=== PATIENT | female | born 1955 | race Caucasian/White ===

== ENCOUNTER 2021-04-09 09:06 | Outpatient (REF) | payer BC, SELFPAY ==
--- NOTE | ~2021-04-09 | MM_ITS ---
EXAMINATION: MM SCREENING DIGITAL BREAST TOMOSYNTHESIS, BILATERAL CLINICAL INFORMATION: Screening. Asymptomatic. The lifetime risk of breast cancer based on the Tyrer-Cuzick Model is 4%. COMPARISON: Mammography: 08/04/2018, 04/15/2017, 03/06/2016 TECHNIQUE: Digital breast tomosynthesis is performed in both the craniocaudal and mediolateral oblique views along with computer-aided detection (CAD). Synthesized 2D images are generated from the tomosynthesis. Additional right MLO view is provided. FINDINGS: There are scattered areas of fibroglandular density (ACR BI-RADS breast composition Category b). There are no significant masses, abnormal calcifications, or other abnormalities. Parenchymal pattern is similar to prior studies. No developing density. The axilla and skin contours are unremarkable. MM/MM tomosynthesis screening BI IMPRESSION: No mammographic evidence of malignancy. ASSESSMENT: BI-RADS 1: Negative RECOMMENDATION: Routine annual mammography screening. This patient's information was entered into a reminder system with a target due date for their next mammogram.
== END 2021-04-09 09:07 | disposition home or self-care (01) ==
LOC: HO.MAMMO 09:06
PROVIDERS: Visit Provider Nurse Practitioner Family
DX: Z12.31 Encounter for screening mammogram for malignant neoplasm of breast (principal)
CPT/HCPCS: 77063; 77067

== ENCOUNTER 2023-03-18 11:35 | Outpatient (REF) | payer OTHER, SELFPAY ==
--- NOTE | ~2023-03-18 | MM_ITS ---
EXAMINATION: MM SCREENING DIGITAL BREAST TOMOSYNTHESIS, BILATERAL CLINICAL INFORMATION: Screening. Asymptomatic. The lifetime risk of breast cancer based on the Tyrer-Cuzick Model is 3.1%. COMPARISON: Mammography: This study is compared with prior exams dating back to 2017. TECHNIQUE: Digital breast tomosynthesis is performed in both the craniocaudal and mediolateral oblique views along with computer-aided detection (CAD). Synthesized 2D images are generated from the tomosynthesis. FINDINGS: There are scattered areas of fibroglandular density (ACR BI-RADS breast composition Category b). There are no significant masses, abnormal calcifications, or other abnormalities. MM/MM tomosynthesis screening BI IMPRESSION: No mammographic evidence of malignancy. ASSESSMENT: BI-RADS BI-RADS 1 - Negative RECOMMENDATION: Routine annual mammography screening. 1 year F/U This examination should not preclude the clinical evaluation of a suspicious palpable abnormality. This patient's information was entered into a reminder system with a target due date for their next mammogram.
== END 2023-03-18 11:36 | disposition home or self-care (01) ==
LOC: HO.MAMMO 11:35
PROVIDERS: Visit Provider Nurse Practitioner Family
DX: Z12.31 Encounter for screening mammogram for malignant neoplasm of breast (principal)
CPT/HCPCS: 77063; 77067

== ENCOUNTER → 2023-03-18 12:00 | Outpatient (BNV) | payer OTHER, SELFPAY | PROVIDERS: Visit Provider Radiology Diagnostic Radiology | DX: Z12.31 Encounter for screening mammogram for malignant neoplasm of breast (principal) | CPT/HCPCS: 77063; 77067 ==

== ENCOUNTER 2025-03-16 08:24 | Outpatient (REF) | payer MEDICARE, SELFPAY ==
--- OUTSIDE RECORDS SUMMARY | 2024-07-02 09:00 | XMS_ITS | Continuity of Care Document ---
Author Organization [facility] Address [address] [place] [address] Dr [address] [place] [address] Phone Care Team Providers Care Technical Training Specialist Name Role Phone Georges CONRAD, RVT, OMAR, Rafat Unavailable U navailable Allergies, Adverse Reactions, Alerts Substance Reaction Status Criticality No Known Allergies Active No Inform ation Procedures Procedure Date Duplex Scan-extrem Veins; Uni/ CT & [place] O ct Inj Scleros Solut; Mx Veins 1- CT & [place] O ct Ultrason Guidan Needle Bx-rad- CT & [place] O Duplex Scan-extrem Veins; Uni/ CT & [place] O ct Endovenous Laser, 1st Vein- CT & [place] Ultrason Guidan Needle Bx-rad- CT & [place] O Inj Sclerosing Solution; Sngl- CT & [place] O Offic/outpt E&m Estab 5 Min Trial- Telem edicine CT & [place] Office/Oupt E&M New Pt 30 Mins- CT & [place] Surgical Stockings CVR Reveal Thigh High 20-30 Duplex Scan-extrem Veins; Comp- CT & [place] Advance Directives Directive Yes / No Effective Date File Name No Information Encounters Encounter Description Practice Location Reason(s) For Visit Diagnoses Date Provider Providers Copied on Encounter [facility], [address] [place] [address] [address], [place], [place], [id number], [place] tel:[phone] [place] Encounter for follow-up examination after completed treatment for conditions other than malignant neoplasmPain in right leg Jun- 4 Georges CONRAD RVT, OMAR Douglass. [address] [facility], Suite [facility], [place], [place], [id number], [place]. tel:[phone] Referring Provider: Deisy Jordan NP, [address], [place], [address]. tel:[phone] [place] [facility], [address] [place] [address] [address], [id number], [place] tel:[phone] [place] Varicose veins of right lower extremity with other complications Jun- 4 Georges CONRAD RVT, OMAR Douglass. [address] [place] [address], Suite [facility], [place], [place], [id number], [place]. tel:[phone] Referring Provider: Deisy Jordan NP, [address], [place], [address]. tel:[phone] [facility], [address] [place] [address] [address], [id number], [place] tel:[phone] [place] Encounter for follow-up examination after completed treatment for conditions other than malignant nePain in right leg Jun- 4 Georges CONRAD RVT, OMAR Douglass. [address] [place] [address], [address], [place], [place], [id number], [place]. tel:[phone] Referring Provider: Deisy Jordan NP, [address], [place], [address]. tel:[phone] [place] [facility], [address] [place] [address] [address] [place], [id number], [place] tel:[phone] [place] Varicose veins of right lower extremity with other complications Jun- 4 Georges CONRAD RVT, OMAR Douglass. [address] [place] [address], Yudith fin[place], [id number], [place]. tel:[phone] Referring Provider: Deisy Jordan MICROBIAL SPECIALIST, [address] [place] [address], [place], [address]. tel:[phone] [place] [facility], [address] [place] [address] Dr [address] [address], [id number], [place] tel:[phone] CVR - [facility] No Information 4 Georges CONRAD RVT, OMAR Douglass. [address] [place] [address], [facility] [place], [id number], [place]. tel:[phone] Offic/outpt E&m Estab 5 Min Trial- Telemedicine CT & [facility], [address] [place] [address] [facility] [address] [address], [place], [id number], [place] tel:[phone] [facility] Localized edemaCramp and spasmRestless legs syndromeVenou s insufficiency (chronic) (peripheral)E ssential (primary) hypertensionD isorder of pigmentation, unspecified 4 Andres Burleson. [address] [place] [address], [place], [id number], [place]. tel:[phone] Referring Provider: Deisy Jordan NP, [address] [place] [address] [address], [place], [address]. tel:[phone] Office/Oupt E&M New Pt 30 Mins- CT & [place] [facility], [address] [place] [address] [facility] [address], [id number], [place] tel:[phone] [facility] Chronic venous hypertension (idiopathic) without complications of bilateral lower extremityRest less legs syndromeEssen tial (primary) hypertensionV enous insufficiency (chronic) (peripheral)D isorder of pigmentation, unspecified 4 Georges CONRAD RVT, OMAR Douglass. [address] [place] [address], [place]ud[place], [id number], [place]. tel:[phone] Referring Provider: Deisy Jordan MICROBIAL SPECIALIST, [address], [place], [address]. tel:[phone] [facility], [address], [place], [id number], [place] tel:[phone] [facility] - [facility] Chronic venous hypertension (idiopathic) with other complications of bilateral lower extremity 4 Georges CONRAD, RVT, RPVI Rafat. [address] [facility] [address], [place], [place], [id number], [place]. tel:[phone] Referring Provider: Deisy Jordan MICROBIAL SPECIALIST, [address], [place], [address]. tel:[phone] Family History Family Member Type Diagnosis Age At Onset No Information Payers Payer name Insurance type Covered green party ID Authoriza tion(s) [employer] Medicare CI [id number] Social History Type Description Quantity Date Captured Comments Sex Female Smoking Status No Information Chief Complaint And Reason For Visit No Information Reason For Referral Reason For Referral No Information Plan Of Treatment Date Type Action Status Goal Diet education completed Referral Ordered: Weight management: Referral to physician timeframe: 3 Months (related to Body mass index (BMI) 35.0-35.9, adult) ordered History Of Present Illness Encounter Date Complaint History Of Prese nt Illness No Information Functional Status Date Functional Assessmen t No Information Instructions Date Instruction Additional Infor mation Pre and post instruc tions reviewed and provided Related to Localized edema Patient education booklet given Related to Localized edema Patient education booklet given Related to Chronic venous hypertension (idiopathic) without complications of bilateral lower extremity Lifestyle education Related to B yani mass index (BMI) 35.0-35.9, adult Giving Encouragement to exercise Related to Body mass index (BMI) 35.0-35.9, adult Diet education Related to Body mass index (BMI) 35.0-35.9, adult Pre and post instruc tions reviewed and provided Related to Chronic venous hypertension (idiopathic) without complications of bilateral lower extremity Assessments Type Assessment Date No Information Patient Care Teams Name Effective Dates (start - stop) Status Members No Information
--- OUTSIDE RECORDS SUMMARY | 2025-03-15 05:02 | XMS_ITS ---
Author Organization [facility] Address [address] [place] [address] Care Team Providers Care Production Leader Name Role Phone Maliha Dill Primary Care Provider U tc Gastelum Jr, Greg Linda REASON FOR VISIT not feeling well Encounters Encounter Location Date Provider Diagnosis [facility] [address] [place] [address] 03/15/2025 Greg Gastelum Jr Abdominal pain R10.9 Assessments Encounter Date Diagnosis (ICD Code) Assessment Notes Treatment Notes Treatment Clinical Notes Section Notes 03/15/2025 Abdominal pain (ICD-10 - R10.9) Plan Of Treatment Pending Test Test Name Order Date BUN 03/15/2025 CREATININE 03/15/2025 LIVER PROFILE 03/15/2025 LIPASE 03/15/2025 CBC w/o DIFF 03/15/2025 CT ABD & PELVIS WITH CONTRAST 03/15/2025 Next Appt Details Provider Name:Greg foss Jr, 05/16/2025 01:55:00 PM, [address], [address], [place], [address], Progress Notes * JOSE AGUILERADOB: 5 (70 yo F)Acc No.[id number]:03/15/2025 Patient: JOSE COLEY :1955 A ge:70 Y S ex:Female Address:[address] [place] [address], [place] [address] Subjective: * Chief Complaints: * N ot feeling well * Medical History: * Surgical History: * Hospitalization/Major Diagno stic Procedure: * Medications: Objective: * Vitals: * Physical Examination: Assessment: * Assessment: 1. A bdominal pain - R10.9 (Primary) Plan: * Treatment: * Procedure Codes: * true * Date: Generated for Dakota gonzalez/Omi/Yuliana on: 0 03/16/2025 08:35 AM EDT
--- OUTSIDE RECORDS SUMMARY | 2025-03-16 08:36 | XMS_ITS | Data Portability ---
Author Organization [facility], Telehealth Patient Home Address [address] [place] [address] Assessment No assessment recorded. Plan of Treatment Reminders Order Date Submit Date Provider Last Modified By Organization Details Last Modified Time Details Appointments None recorded. Lab CMP, serum or plasma 2018 019 OSMAN Not available 9 08:24:31 CBC 2018 019 dania Not available 9 08:37:56 lipids, total, serum 2018 019 OSMAN Not available 9 08:24:31 hepatitis C Ab, serum 2018 019 tawny Not available 9 10:31:36 CMP, serum or plasma 2017 018 OSMAN Not available 8 08:01:57 CBC 2017 018 OSMAN Not available 8 08:01:57 Referral hand surgeon referral 2018 019 dania Marie MD, [address] [place], [address], 9 08:38:55 orthopedic referral 2018 019 tawny Marie MD, [address] [place], [address], 9 09:53:29 neurologis t referral 2018 019 OSMAN Gallegos MD, [address] [place] [address], [address], 9 05:41:18 Procedures None recorded. Surgeries None recorded. Imaging None recorded. Medication Orders Medrol (Tony) 4 mg tablets in a dose pack 2017 [facility] #[id number], [address] [place], [address], 9 10:00:01 amoxicilli n 500 mg capsule 2017 018 [facility]/Pharmacy #[id number], [address] [place], [address], 8 11:10:16 Cheratussi n AC 10 mg-100 mg/5 mL oral liquid 2017 018 [facility]/Pharmacy #[id number], [address] [place], [address], 8 11:10:23 ProAir HFA 90 mcg/actuat ion aerosol inhaler 2017 018 [facility]/Pharmacy #[id number], [address] [place], [address], 8 14:15:29 meclizine 12.5 mg tablet 2017 018 [facility]/Pharmacy #[id number], [address] [place], [address], 8 11:00:24 cyclobenza katherine 10 mg tablet 2017 018 [facility]/Pharmacy #[id number], [address] [place], [address], 8 14:05:35 naproxen 500 mg tablet 2017 018 sena [facility]/Pharmacy #[id number], [address] [place], [address], 8 11:00:01 Patient TargetsNo targets recorded. Patient Instructions Encounter Date Encounter Id Patient Instructions Last Modified By Organization Details Last Modified Time 08/24/2018 [id number] Call if symptoms persist sena Not available 08/24/2018 12:16:52 03/22/2019 [id number] sleep apnea: car e instructions Not available 03/22/2019 10:21:56 high blood pressure: care instructions Not available 03/22/2019 10:21:56 learning about high blood pressure Not available 03/22/2019 10:21:56 04/13/2019 [id number] sleep apnea: car e instructions Not available 04/13/2019 10:03:10 high blood pressure: care instructions Not available 04/13/2019 10:03:10 learning about high blood pressure Not available 04/13/2019 10:03:10 Reason for Referral Orthopedic Referral for Pare sthesia of hand Referring Physician: Yashira [facility], Encounter Date: 03/22/2019 Neurologist Referral for Par esthesia of hand Referring Physician: Yashira [facility], Encounter Date: 03/22/2019 Hand Surgeon Referral for Bi lateral carpal tunnel syndrome right hand worse than left Referring Physician: Yashira [facility], Encounter Date: 04/13/2019 Results Created Date Observation Date Name Description Value Unit Range Abnormal Flag Note LastModifiedBy Organization Detail LastModifiedTime 08/10/20 18 08/04/2018 MAMMO , scree leonel, bilat eral No observ ation record ed. sena Not Available 2017 14:16:44 04/05/20 19 04/02/2019 nerve condu ction study /EMG (PROC ) No observ ation record ed. Nathaniel Gallegos MD [address] [place] [address], [id number], 04/05/2019 11:11:01 Result Notes None recorded. Problems Name Problem SNOMED Code Status Onset Date Resolution Date Notes Provider Name and Address Organization Details Recorded Time Essential hypertensi on 79616355 Active 2017 Arabella Tejeda NP, [address] [place], [address], [facility] 8 11:12:42 Seasonal allergic rhinitis 316044385 Active 2017 Arabella Tejeda NP, S [address] [place] [address], [address], [facility] 8 10:31:47 Sleep apnea 71554502 Active 2017 Arabella Tejeda NP, S [address] [place] [address], [phone], [facility] 8 11:29:54 Problem Notes None recorded. Procedures Surgical History Date Name Laterality Status Provider Name and Address Organization Details Recorded Time 04/08/20 18 Most Recent Mammogram completed Arabella Tejeda NP, S [address] [place] [address], [phone], [facility] 12/13/2017 11:13:40 Imaging Results None recorded. Procedure Notes None recorded. Medical Equipment None Reported. Allergies No known drug allergies Medications Name Sig Start Date Stop Date Status Note LastModified by Organization Details LastModified Time cyclobenzap rine 10 mg tablet Take 1 tablet 3 times a day by oral route. 08/12 completed Not Available Not Available Not Available amoxicillin 500 mg capsule Take 1 capsule every 8 hours by oral route. 08/24 completed Not Available Not Available Not Available meclizine 12.5 mg tablet TAKE 1 TABLET BY MOUTH EVERY DAY NEEDED 2017 active Not Available Not Available Not Avai lable lisinopril 20 mg-hydrochl orothiazide 25 mg tablet TAKE 1 TABLET BY MOUTH EVERY DAY 2019 active Not Available Not Available Not Avai lable codeine 10 mg-guaifene sin 100 mg/5 mL oral liquid Take 10 mL every 4 hours by oral route. 08/24 completed Not Available Not Available Not Available lisinopril 10 mg-hydrochl orothiazide 12.5 mg tablet 12/15 completed Not Available Not Available Not Available methylpredn isolone 4 mg tablets in a dose pack as directed 03/22 completed Not Available Not Available Not Available albuterol sulfate HFA 90 mcg/actuati on aerosol inhaler Inhale 2 puffs every 4 hours by inhalatio n route as needed. active Not Available Not Available No t Available fluticasone propionate 50 mcg/actuati on nasal spray,suspe nsion TAKE 2 SPRAYS INTO BOTH NOSTRILS EVERY DAY DIRECTED active Not Available Not Available No t Available naproxen 500 mg tablet TAKE 1 TABLET BY MOUTH TWICE A DAY active Not Available Not Available No t Available amoxicillin 875 mg-potassiu m clavulanate 125 mg tablet 12/15 completed Not Available Not Available Not Available Gavilyte-C 240 gram-22.72 gram-6.72 gram-5.84 gram oral solution 12/15 completed Not Available Not Available Not Available Vitals Date Recorded Body height Body mass index (BMI) Body weight Heart rate Oxygen saturation Oxygen saturation in Arterial blood by Pulse oximetry Systolic And Diastolic Provider Name and Address Organization Details Last Updated DateTime 9 159.39 cm 33.6 kg/m2 46573.8 g 74 /min 99 % 99 % 138/74 mm[Hg] [facility] 9 10:01:13 Date Recorded Body height Body mass index (BMI) Body weight Heart rate Oxygen saturation Oxygen saturation in Arterial blood by Pulse oximetry Systolic And Diastolic Provider Name and Address Organization Details Last Updated DateTime 9 159.39 cm 34.6 kg/m2 26557.4 8 g 67 /min 98 % 98 % 124/78 mm[Hg] [facility] 9 09:55:10 Date Recorded Body height Body mass index (BMI) Body weight Heart rate Oxygen saturation Oxygen saturation in Arterial blood by Pulse oximetry Body temperature Systolic And Diastolic Provider Name and Address Organization Details Last Updated DateTime 8 159.39 cm 34.9 kg/m2 49581.9 5 g 80 /min 98 % 98 % 98.5 [degF] 134/72 mm[Hg] Nettie Graham [facility] 8 10:36:46 Date Recorded Oxygen saturation Oxygen saturation in Arterial blood by Pulse oximetry Provider Name and Address Organization Details Last Updated DateTime 08/12/2018 96 % 96 % Arabella Tejeda NP, [address] [place], [address], [facility] 08/12/2018 14:16:35 Date Recorded Body height Body mass index (BMI) Body weight Body temperature Heart rate Oxygen saturation Oxygen saturation in Arterial blood by Pulse oximetry Systolic And Diastolic Provider Name and Address Organization Details Last Updated DateTime 8 159.39 cm 35.1 kg/m2 14224.5 4 g 98.7 [degF] 89 /min 95 % 95 % 110/68 mm[Hg] [facility] 8 14:04:52 Date Recorded Body height Body mass index (BMI) Body weight Heart rate Oxygen saturation Oxygen saturation in Arterial blood by Pulse oximetry Body temperature Systolic And Diastolic Provider Name and Address Organization Details Last Updated DateTime 8 159.39 cm 35.2 kg/m2 36912.7 g 85 /min 98 % 98 % 98.7 [degF] 116/72 mm[Hg] [facility] 8 11:11:49 Social History Question Answer Notes LastModified by [employer] ion Details LastModified Time Tobacco Smoking Status Never Smoker Not Available [facility] 07/11/2020 03:36:23 What Was The Date Of Your Most Recent Tobacco Screening? 03/22/2019 [id number] Information not available 07/11/2020 Sex: Unknown Functional Status None recorded. Mental Status None recorded. Family History Nothing Reported. Medical History Condition Response Coronary Artery Disease N Gout N Other N Kidney Stones N Blood Diseases N Blood Transfusion N Breast Cancer N COPD N Depression N Lung Disease N Defects or Inherited Disease N Anxiety Disorder N Muscle, Joint, or Bone Problems N Obesity N Vision or Eye Problems N Arthritis N Polyps N Infertility N Mental Disorder N Cancer N Varicosities N Stroke N Endometriosis N Bladder or Kidney Problems N High Cholesterol N Liver Disease N Headaches N Fibromyalgia N Kidney Disease N Allergies/Hayfever N Heart Problems N Hospitalizations N Thyroid Problems N GI Problems N Eating Disorder N Skin Problems N Anemia N MRSA exposure N Constipation N Mental Illness N Diabetes N Ovarian Cancer N Seizures/Epilepsy N Tuberculosis N Congestive Heart Failure (CHF) N Eczema N Abuse/Domestic Violence N Diverticulitis N Asthma N Reflux/GERD N Hepatitis N Heart Disease N Pulmonary Embolism N Hypertension N Chicken Pox N Autism Spectrum Disorder (ASD) N Osteoporosis N Gynecological History Statement/Question Response Most Recent Mammogram 04/08/2018 Obstetrics History GPAL:G 0 P 0 0 0 0 Immunizations Vaccine Type Date Status Note Provider Elvis de la cruz and Address Organization Details Recorded Time Tdap 04/20/2018 completed Nettie nolan [facility] 04/22/2018 09:41:21 Past Encounters Encounter ID Performer Location Encounter Start Date Encounter Closed Date Diagnosis/Indication Diagnosis SNOMED-CT Code Diagnosis ICD10 Code Diagnosis Note [id number] Arabella Tejeda NP, S [facility] [address] [facility],[place] [address] 12/15/2017 09:48:29 12/15/2017 16:45:11 Snoring symptoms 872391719 R06.83 Essential hypertension 23279571 I10 stable, continue medication s, check labs Seasonal a llergic rhinitis 898786258 J30.2 continue allergy shots, refill proair Obesity 564130594 E66.9 continue healthy exercise, try to change intensity since no weight loss, continue use Adim8 pal pete Hypercholesterolemia 136 29158 E78.00 recheck, 2016 RR 3.1 [id number] [place] [facility]cer[facility] [address] [facility],[place] [address] 06/09/2018 10:32:08 06/09/2018 14:48:53 Strain of trapezius muscle 789470164 S46.811A Essential hypertension 73026555 I10 stable, continue medication s, check labs Dizziness 321138419 R42 Sleep apnea 17587880 G47 .30 100% compliance with CPAP Seasonal a llergic rhinitis 221160444 J30.2 continue allergy shots [id number] [place] Mancer[facility] [address] [facility],[place] [address] 08/12/2018 13:57:39 08/17/2018 10:08:23 Seasonal allergic rhinitis 723443550 J30.2 continue allergy shots Acute bronchitis 5410441 2 J20.9 Essential hypertension 42639021 I10 stable, continue medication s, reviewed labs Sleep apnea 62343320 G47 .30 100% compliance with CPAP [id number] [place] [facility]cer[facility] [address] [facility],[place] [address] 08/24/2018 11:05:13 08/24/2018 12:28:56 Acute bronchitis 11941233 J20.9 [id number] [place] [facility] [address] [facility] [address] 03/22/2019 09:38:02 03/22/2019 11:36:03 Essential hypertension 36692364 I10 stable Sleep apnea 50487355 G47 .30 Paresthesia of hand 3090 58955 R20.2 right hand dominant affected distributi on not consistent with median nerve alone, though carpal brock compressio n seems to increase the sx night wrist splint NSAIDS [id number] [place] [facility]cer[facility] [address] [facility] [address] 04/13/2019 09:47:44 04/13/2019 10:29:20 Essential hypertension 07777021 I10 stable/wel l controlled Sleep apnea 48571517 G47 .30 uses cpap every night Bilateral carpal tunnel syndrome 8110820306 3185175 G56.03 didn't tolerate splint has been using naproxen x 1 month with relief, no resolution Screening procedure 2012 5006 Z13.9 Health Concerns Section Related Observation LastModified by Organization Detai ls LastModified Time None Recorded Concern Status LastModified by Organization Details LastModified Time None Recorded Advance Directives Directive None Recorded Payers Insurance Date Sequence Insurance Name Policy Number Policy Lo Covered Member ID Lo Member ID Guarantor Name 04/10/2019 1 [place] ([place]) [id number] Juan Yuan [id number] Jayne Yuan Notes Date Note Type Note Provider Name a nd Address Organization Details Recorded Time 06/09/2018 text/html Request refill Naproxen uses prn for back pain Also requests meclizine for dizziness Getting allergy shots , using CPAP 7 hours nightly Called to day to make appt re: awakening with pain in left shoulder X 5 days ago. some left neck pain No known injury, no new sports/ exercises No CP/SOB Arabella Tejeda NP, [address] [place], [address], [facility] 06/09/2018 11:01:20 08/12/2018 text/html 4 days of coughing & sneezing Lots nasal congestion, lots thick drainage in a.m. + headache, Can hear self wheezing sometimes Using C-PAP nightly without difficulty Arabella Tejeda NP, [address] [place], [address], [facility] 08/12/2018 14:26:13 08/24/2018 text/html Seen recently an d treated for bronchitis Still with a.m. nasal mucous and occasional wheeze Otherwise feels ok Denies fever, chest congestion, SOB, ear pain or sore throat + occasional headache Arabella Tejeda NP, S [address] [place], [address], [facility] 08/24/2018 12:17:08 03/22/2019 text/html right hand numbness and tingling, right hand dominant, no pain. all the fingers from the mcp joint the the finger tips. the thumb maybe less so than the other fingers. sx started about 3 weeks ago intermittently then last week is was constant all day long. tingling spreads from the finger tips to the knuckles no chronic neck issues no neck pain no shoulder pain no radiation nothing seems to make it worse nothing seems to make it better 12 system ROS negative except where noted above- denies: chest pain, palpitations, sob, ankle swelling, visual problems, hearing problems, muscle aches or pains, numbness or tingling extremities, abdominal pain, bowel issues, bladder issues, sexual dysfunction, abnormal bleeding, sx of sinus/respiratory infection , headaches, dizziness/lighthe adedness, rashes, or nail changes. Yashira JIMI Herrera [address] [place], [address], [facility] 03/22/2019 10:22:17 04/13/2019 text/html bp - no problem with meds, remembers to take it carpal tunnel - confirmed by emg both hands using naprox with relief. couldnt wear splints made things worse sleep apnea - uses cpap nightly 12 system ROS negative except where noted above- denies: chest pain, palpitations, sob, ankle swelling, visual problems, hearing problems, muscle aches or pains, numbness or tingling extremities, abdominal pain, bowel issues, bladder issues, sexual dysfunction, abnormal bleeding, sx of sinus/respiratory infection , headaches, dizziness/lighthe adedness, rashes, or nail changes. December JIMI Herrera [address] [place] [address], [phone], [facility] 04/13/2019 10:08:06 OBGyn Episode No OBEpisode recorded.
[2025-03-16 10:37] LABS: Hematocrit 35.8 % (37.0-47.0); Hemoglobin 12.0 g/dl (12.0-16.0); Mean Corpuscular HGB Conc 33.5 g/dl (31.0-35.0); Mean Corpuscular Hemoglobin 28.9 pg (27.0-33.0); Mean Corpuscular Volume 86.3 fL (80.0-98.0); NRBC Abs Auto 0.000 X10*3/uL (0.0-0.012); NRBC Pct Auto 0.0 /100WBC (0.0-0.2); Platelet Count 230 X10*3/uL (160-400); Red Blood Count 4.15 X10*6/uL (4.20-5.50); White Blood Count 6.5 X10*3/uL (4.8-10.8)
[2025-03-16 11:18] LABS: Alanine Aminotransferase 23 U/L (0-31); Albumin Level 4.4 g/dL (3.5-5.0); Alkaline Phosphatase 55 U/L (39-117); Aspartate Amino Transferase 23 U/L (5-31); Blood Urea Nitrogen 12 mg/dL (9-16); Estimated Glomerular Filt Rate > 60; Lipase 24 U/L (8-78); Total Protein 7.2 g/dL (6.5-8.0)
== END 2025-03-16 08:25 | disposition home or self-care (01) ==
LOC: HO.HMGCLDS 08:24
PROVIDERS: PCP Physician Assistant; Visit Provider Internal Medicine Gastroenterology
DX: R10.9 Unspecified abdominal pain (principal)
CPT/HCPCS: 36415; 80076; 82565; 83690; 84520; 85027

== ENCOUNTER 2025-04-29 08:46 | Day surgery (SDC) | payer MEDICARE, SELFPAY ==
--- OUTSIDE RECORDS SUMMARY | 2024-07-02 09:00 | XMS_ITS | Continuity of Care Document ---
Author Organization [facility] Address [address] [place] [address] Dr Benitez [address] [place] [address] Phone Care Team Providers Care Granulating Blender Name Role Phone Georges CONRDA, RVT, OMAR, Rafat Unavailable U navailable Allergies, [...] Providers Copied on Encounter [facility], [address] [place] [address] [address], [employer], [place], [id number], [place] tel:[phone] [place] Encounter for follow-up examination after completed treatment for conditions other than malignant neoplasmPain in right leg Jun- 4 Georges CONRAD RVT, OMAR Douglass. [address] [facility], Suite [facility], [place], [place], [id number], [place]. tel:[phone] Referring Provider: Deisy Jordan NP, [address], [place], [address]. tel:[phone] [place] [facility], [address] [place] [address] [address], [id number], [place] tel:[phone] [place] Varicose veins of right lower extremity with other complications Jun- 4 Georges CONRAD RVT, OMAR Douglass. [address] [place] [address], Suite [facility], [place], [place], [id number], [place]. tel:[phone] Referring Provider: Deisy Jordan NP, [address], [place], [address]. tel:[phone] [facility], [address] [place] [address] [address], [id number], [place] tel:[phone] [place] Encounter for follow-up examination after completed treatment for conditions other than malignant nePain in right leg Jun- 4 Georges CONRAD RVT, OMAR Douglass. [address] [place] [address], [address], [place], [place], [id number], [place]. tel:[phone] Referring Provider: Deisy Jordan NP, [address], [place], [address]. 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 [address] [place] [address], [place]ud[place], [id number], [place]. tel:[phone] Referring Provider: Deisy Jordan PHILANTHROPY OFFICER, [address] [place] [address], [place], [address]. tel:[phone] [place] [facility], [address] [place] [address] [address] [address], [id number], [place] tel:[phone] CVR - [facility] No Information 4 Georges CONRAD RVT, OMAR Douglass. [address] [place] [address], [facility] [place], [id number], [place]. tel:[phone] Offic/outpt E&m Estab 5 Min Trial- Telemedicine CT & [facility], [address] [place] [address] [facility] [address] [address], [place], [id number], [place] tel:[phone] [facility] Localized edemaCramp and spasmRestless legs syndromeVenou s insufficiency (chronic) (peripheral)E ssential (primary) hypertensionD isorder of pigmentation, unspecified 4 Andres Burleson. [address] [place] [address], [place], [id number], [place]. tel:[phone] Referring Provider: Deisy Jordan NP, [address] [place] [address] [address], [place], [address]. tel:[phone] Office/Oupt E&M New Pt 30 Mins- CT & [place] [facility], [address] [place] [address] [facility] [place] [facility] [address], [id number], [place] tel:[phone] [facility] Chronic venous hypertension (idiopathic) without complications of bilateral lower extremityRest less legs syndromeEssen tial (primary) hypertensionV enous insufficiency (chronic) (peripheral)D isorder of pigmentation, unspecified 4 Georges CONRAD RVT, OMAR Douglass. [address] [place] [address], [place]ud[place], [id number], [place]. tel:[phone] Referring Provider: Deisy Jordan PHILANTHROPY OFFICER, [address], [place], [address]. tel:[phone] [facility], [address], [place], [id number], [place] tel:[phone] [facility] - [facility] Chronic venous hypertension (idiopathic) with other complications of bilateral lower extremity 4 Georges CONRAD, RVT, RPVI Rafat. [address] [facility] [address], [place], [place], [id number], [place]. tel:[phone] Referring Provider: Deisy Jordan PHILANTHROPY OFFICER, [address], [place], [address]. tel:[phone] Family History Family Member Type Diagnosis Age At Onset No Information Payers Payer name Insurance type Covered alliance party ID Authoriza tion(s) [employer] Medicare CI [id number] Social History Type Description Quantity Date Captured [...]
--- OUTSIDE RECORDS SUMMARY | 2025-03-24 23:59 | XMS_ITS | Continuity of Care Document ---
Author Organization [facility] Germ[facility] lt Address [address] [place] [address]- Care Team Providers Care Care Worker Name Role Phone Maliha Greene Primary Care Physician [id number] Date[facility]/22/[facility] - 03/24/25 [facility] [address] [place] [address]- Encounter Type: Triage Allergies, Adverse Reactions, Alerts Substance Criticality Severity Reaction Reaction Severity Status Cats Active Dogs Active Dust Active Immunizations Given and Recorded Vaccine Date Status Refusal Reason SARS-CoV-2 mRNA (jridtbv-biun-mygen) vax 1 06/26/22 Recorded SARS-CoV-2 mRNA (dtjwtwf-svqy-zykuo) vax 02/12/22 Recorded Zoster Vaccine Live 2 04/16/22 Recorded SARS-CoV-2 (COVID-19) mRNA BNT-162b2 vac 02/20/21 Given SARS-CoV-2 (COVID-19) mRNA BNT-162b2 vac 01/30/21 Given tetanus/diphtheria/pertussis, acel(Tdap) 04/20/18 Recorded 1Result Comment: [facility] 2Result Comment: [facility] Medications Albuterol (Eqv-Proventil HFA) 90 mcg/inh inhalation aerosol See Instructions, INHALE 2 PUFFS FOUR TIMES DAILY NEEDED FOR WHEEZING/SHORTNESS OF BREATH, # 1 each, 5 Refills, Maintenance, 01/14/25 11:12:00 AM EDT, [facility], 160, cm, 12/12/23 8:49:00 EDT, Height Start Date: 01/14/25 Status: Ordered Quantity: 1.0 Unit: each Repeat number: 1 fluticasone 50 mcg/inh nasal spray See Instructions, USE 1 SPRAY IN EACH NOSTRIL TWICE A DAY, # 48 Gm, 1 Refills, Maintenance, 01/14/25 11:13:00 AM EDT, [facility], 90, USE 1 SPRAY IN EACH NOSTRIL TWICE A DAY, 160, cm, 12/12/23 8:49:00 EDT, Height Start Date: 01/14/25 Status: Ordered Quantity: 48.0 Unit: g Repeat number: 1 hydrochlorothiazide-lisinopril 12.5 mg-20 mg oral tablet 2 tablet, By Mouth, Daily, # 180 tablet, 3 Refills, Maintenance, 01/14/25 3:53:00 PM EDT, [facility] Mail Delivery, 90, TAKE 2 TABLETS EVERY DAY, 160, cm, 12/12/23 8:49:00 EDT, Height Start Date: 01/14/25 Status: Ordered Quantity: 180.0 Unit: tablet Repeat number: 1 Multivitamin By Mouth, Daily, 0 Refills, Maintenance, 04/24/16 1:39:10 PM EDT Start Date: 04/24/16 Status: Ordered Repeat number: 1 naproxen 500 mg oral tablet 1 tablet = 500 mg, By Mouth, 2 times a day, PRN Pain , Moderate, # 60 tablet, 1 Refills, Maintenance, 04/20/24 9:15:00 AM EDT, Tablet, [facility], Partial fill upon patient request if the prescription is for a schedule II opioid drug., 160, cm, 12/12/23 8:49:00 EDT, Height Start Date: 04/20/24 Status: Ordered Quantity: 60.0 Unit: tablet Repeat number: 2 Redi-cat pre-mixed oral prep need 2 450ml bottles Redi-cat pre-mixed oral prep need 2 450ml bottles, See Instructions, # 2 each, Refills 0, Tot. Refills 0, Maintenance, drink 1 bottle 6 hours prior and remaining 90 minutes prior., 02/04/25 1:07:00 PMEDT, please dispense 2 450mls bottles;, Compound, 160, cm, 01/26/25 12:12:00 EDT, Height Start Date: 02/04/25 Status: Ordered Quantity: 2.0 Unit: each Repeat number: 1 Mame Vilchis, See Instructions, Refills 0, Maintenance, 1200mg takes twice a day, 12/12/23 8:51:00 AM EDT,Supply Start Date: 12/12/23 Status: Ordered Repeat number: 1 Problem List Condition Confirmation Course Effective Dates Status Health St at Informant Right carpal tunnel syndrome Confirmed Active Essential hypertension Confirmed Active Mild intermittent asthma Confirmed Active Seasonal allergic rhinitis Confirmed Active Severe obesity (BMI 35.0-39.9) with comorbidity Confirmed Active Sleep apnea Confirmed Active Social History Social History Type Response Smoking Status Never smoker; Tobacc o user in household: No entered on: 04/24/16 Sex Female Sex Representation Female (finding) Patient Care team information Care Team Personnel Name: Maliha Greene Position: [facility] PCO Associate Professional Member Role: PCP Address: [address] [place] [id number] Telecom: Care Team Related Persons Name: SANA AGUILERA Name: JUAN ECHAVARRIA Insurance Providers Guarantor name: SANA AGUILERA Health Plan Information #: 1 Payer: [employer] Payer Identifier: BALWINDER Member Number: [id number] Group Number: [id number] Subscriber Identifier: [id number] Relationship to Subscriber: self Coverage Type: Managed Care (Private) Coverage Verification Date: NA Telecom: NA Address:
--- OUTSIDE RECORDS SUMMARY | 2025-03-29 06:30 | XMS_ITS | Data Portability ---
Author Organization [facility], Telehealth Patient Home Address [address] [place] [address] Assessment No assessment recorded. Plan of Treatment [...] referral 2018 019 dania Marie MD, [address] [place], [address], 9 08:38:55 orthopedic referral 2018 019 tawny Marie MD, [address] [place], [address], 9 09:53:29 neurologis t referral 2018 019 OSMAN Gallegos MD, [address] [place] [address], [address], 9 05:41:18 Procedures None recorded. Surgeries None recorded. Imaging None recorded. Medication Orders Medrol (Tony) 4 mg tablets in a dose pack 2017 018 sbnew [facility]/Pharmacy #[id number], [address] [place], [address], 9 10:00:01 amoxicilli n 500 mg capsule 2017 018 [facility]/Pharmacy #[id number], [address] [place], [address], 8 11:10:16 Cheratussi n AC 10 mg-100 mg/5 mL oral liquid 2017 018 [facility]/Pharmacy #[id number], [address] [place], [address], 8 11:10:23 ProAir HFA 90 mcg/actuat ion aerosol inhaler 2017 018 [facility]/Pharmacy #[id number], [address] [place], [address], 8 14:15:29 meclizine 12.5 mg tablet 2017 018 [facility]/Pharmacy #[id number], [address] [place], [address], 8 11:00:24 cyclobenza katherine 10 mg tablet 2017 018 [facility]/Pharmacy #[id number], [address] [place], [address], 8 14:05:35 naproxen 500 mg tablet 2017 018 sena [facility]/Pharmacy #[id number], [address] [place], [address], 8 11:00:01 Patient TargetsNo targets recorded. Patient Instructions Encounter Date Encounter Id Patient Instructions Last Modified By Organization Details Last Modified Time 08/24/2018 [id number] Call if symptoms persist sena Not available 08/24/2018 12:16:52 03/22/2019 [id number] sleep apnea: car e instructions Not available 03/22/2019 10:21:56 high blood pressure: care instructions Not available 03/22/2019 10:21:56 learning about high blood pressure Not available 03/22/2019 10:21:56 04/13/2019 [id number] sleep apnea: car e instructions Not available 04/13/2019 10:03:10 high blood pressure: care instructions Not available 04/13/2019 10:03:10 learning about high blood pressure Not available 04/13/2019 10:03:10 Reason for Referral Orthopedic Referral for Pare sthesia of hand Referring Physician: Yashira [facility], Encounter Date: 03/22/2019 Neurologist Referral for Par esthesia of hand Referring Physician: Yashira [facility], Encounter Date: 03/22/2019 Hand Surgeon Referral for Bi lateral carpal tunnel syndrome right hand worse than left Referring Physician: Yashira [facility], Encounter Date: 04/13/2019 Results Created Date Observation Date Name Description Value Unit Range Abnormal Flag Note LastModifiedBy Organization Detail LastModifiedTime 08/10/20 18 08/04/2018 MAMMO , scree leonel, bilat eral No observ ation record ed. sena Not Available 2017 14:16:44 04/05/20 19 04/02/2019 nerve condu ction study /EMG (PROC ) No observ ation record ed. Nathaniel Gallegos MD [address] [place] [address], [id number], 04/05/2019 11:11:01 Result Notes None recorded. Problems Name Problem SNOMED Code Status Onset Date Resolution Date Notes Provider Name and Address Organization Details Recorded Time Essential hypertensi on 65674868 Active 2017 Arabella Tejeda NP, S [address] [place], [address], [facility] 8 11:12:42 Seasonal allergic rhinitis 488667834 Active 2017 Arabella Tejeda NP, S [address] [place] [address], [address], [facility] 8 10:31:47 Sleep apnea 48238314 Active 2017 Arabella Tejeda NP, S [address] [place] [address], [address], [facility] 8 11:29:54 Problem Notes None recorded. Procedures Surgical History Date Name Laterality Status Provider Name and Address Organization Details Recorded Time 04/08/20 18 Most Recent Mammogram completed Arabella Tejeda NP, S [address] [place] [address], [phone], [facility] 12/13/2017 11:13:40 Imaging Results None [...] Updated DateTime 9 159.39 cm 33.6 kg/m2 50338.8 g 74 /min 99 % 99 % 138/74 mm[Hg] [facility] 9 10:01:13 Date Recorded Body height Body mass index (BMI) Body weight Heart rate Oxygen saturation Oxygen saturation in Arterial blood by Pulse oximetry Systolic And Diastolic Provider Name and Address Organization Details Last Updated DateTime 9 159.39 cm 34.6 kg/m2 32535.4 8 g 67 /min 98 % 98 % 124/78 mm[Hg] [facility] 9 09:55:10 Date Recorded Body height Body mass index (BMI) Body weight Heart rate Oxygen saturation Oxygen saturation in Arterial blood by Pulse oximetry Body temperature Systolic And Diastolic Provider Name and Address Organization Details Last Updated DateTime 8 159.39 cm 34.9 kg/m2 96929.9 5 g 80 /min 98 % 98 % 98.5 [degF] 134/72 mm[Hg] Nettie Graham [facility] 8 10:36:46 Date Recorded Oxygen saturation Oxygen saturation in Arterial blood by Pulse oximetry Provider Name and Address Organization Details Last Updated DateTime 08/12/2018 96 % 96 % Arabella Tejeda NP, S [address] [place], [address], [facility] 08/12/2018 14:16:35 Date Recorded Body height Body mass index (BMI) Body weight Body temperature Heart rate Oxygen saturation Oxygen saturation in Arterial blood by Pulse oximetry Systolic And Diastolic Provider Name and Address Organization Details Last Updated DateTime 8 159.39 cm 35.1 kg/m2 84002.5 4 g 98.7 [degF] 89 /min 95 % 95 % 110/68 mm[Hg] [facility] 8 14:04:52 Date Recorded Body height Body mass index (BMI) Body weight Heart rate Oxygen saturation Oxygen saturation in Arterial blood by Pulse oximetry Body temperature Systolic And Diastolic Provider Name and Address Organization Details Last Updated DateTime 8 159.39 cm 35.2 kg/m2 44735.7 g 85 /min 98 % 98 % 98.7 [degF] 116/72 mm[Hg] [facility] 8 11:11:49 Social History Question Answer Notes LastModified by MediWound ion Details LastModified Time Tobacco Smoking Status Never Smoker Not Available [facility] 07/11/2020 03:36:23 What Was The Date Of Your Most Recent Tobacco Screening? 03/22/2019 [id number] Information not available 07/11/2020 Sex: Unknown Functional Status None recorded. Mental Status None recorded. Family History Nothing Reported. Medical History Condition Response Coronary Artery Disease N Gout N Other N Kidney Stones N Blood Diseases N Blood Transfusion N Breast Cancer N Lung Disease N Depression N COPD N Defects or Inherited Disease N Anxiety Disorder N Muscle, Joint, or Bone Problems N Obesity N Vision or Eye Problems N Arthritis N Infertility N Polyps N Mental Disorder N Cancer N Stroke N Varicosities N Endometriosis N Bladder or Kidney Problems N High Cholesterol N Liver Disease N Fibromyalgia N Headaches N Kidney Disease N Allergies/Hayfever N Heart [...] Recorded Time Tdap 04/20/2018 completed Nettie nolan [facility] 04/22/2018 09:41:21 Past Encounters Encounter ID Performer Location Encounter Start Date Encounter Closed Date Diagnosis/Indication Diagnosis SNOMED-CT Code Diagnosis ICD10 Code Diagnosis Note [id number] Arabella Tejeda NP, S [facility] [address] [facility] [address] 12/15/2017 09:48:29 12/15/2017 16:45:11 Snoring symptoms 369659126 R06.83 Essential hypertension 94947569 I10 stable, continue medication s, check labs Seasonal a llergic rhinitis 524528307 J30.2 continue allergy shots, refill proair Obesity 755801768 E66.9 continue healthy exercise, try to change intensity since no weight loss, continue use [facility] Hypercholesterolemia 136 87897 E78.00 recheck, 2016 RR 3.1 [id number] [place] [facility] [address] [facility] [address] 06/09/2018 10:32:08 06/09/2018 14:48:53 Strain of trapezius muscle 724904543 S46.811A Essential hypertension 02133963 I10 stable, continue medication s, check labs Dizziness 792251185 R42 Sleep apnea 37891243 G47 .30 100% compliance with CPAP Seasonal a llergic rhinitis 583192214 J30.2 continue allergy shots [id number] [place] [facility] [address] [facility] [address] 08/12/2018 13:57:39 08/17/2018 10:08:23 Seasonal allergic rhinitis 709604493 J30.2 continue allergy shots Acute bronchitis 1188624 2 J20.9 Essential hypertension 22545538 I10 stable, continue medication s, reviewed labs Sleep apnea 88331491 G47 .30 100% compliance with CPAP [id number] [place] [facility] [address] [facility] [address] 08/24/2018 11:05:13 08/24/2018 12:28:56 Acute bronchitis 75864153 J20.9 [id number] [place] [facility] [address] [facility] [address] 03/22/2019 09:38:02 03/22/2019 11:36:03 Essential hypertension 06037907 I10 stable Sleep apnea 82790025 G47 .30 Paresthesia of hand 3090 26189 R20.2 right hand dominant affected distributi on not consistent with median nerve alone, though carpal brock compressio n seems to increase the sx night wrist splint NSAIDS [id number] [place] [facility] [address] [facility] [address] 04/13/2019 09:47:44 04/13/2019 10:29:20 Essential hypertension 74438051 I10 stable/wel l controlled Sleep apnea 46338993 G47 .30 uses cpap every night Bilateral carpal tunnel syndrome 3416841020 8088338 G56.03 didn't tolerate splint has been using naproxen x 1 month with relief, no resolution Screening procedure 2012 5006 Z13.9 Health Concerns Section Related Observation LastModified by Organization Detai ls LastModified Time None Recorded Concern Status LastModified by Organization Details LastModified Time None Recorded Advance Directives Directive None Recorded Payers Insurance Date Sequence Insurance Name Policy Number Policy Lo Covered Member ID Ol Member ID Guarantor Name 04/10/2019 1 [place] ([place]) [id number] Juan Yuan [id number] Jayne Yuan Notes Date Note Type [...] No CP/SOB Arabella Tejeda NP, S [address] [place], [address], [facility] 06/09/2018 11:01:20 08/12/2018 text/html 4 days of coughing & sneezing Lots nasal congestion, lots thick drainage in a.m. + headache, Can hear self wheezing sometimes Using C-PAP nightly without difficulty Arabella Tejeda NP, S [address] [place], [address], [facility] 08/12/2018 14:26:13 08/24/2018 text/html Seen recently an d treated for bronchitis Still with a.m. nasal mucous and occasional wheeze Otherwise feels ok Denies fever, chest congestion, SOB, ear pain or sore throat + occasional headache Arabella Tejeda NP, S [address] [place], [address], [facility] 08/24/2018 12:17:08 03/22/2019 text/html right hand [...] or nail changes. Yashira JIMI Herrera [address] [place], [address], [facility] 03/22/2019 10:22:17 04/13/2019 text/html bp [...] rashes, or nail changes. December JIMI Herrera [address] [place] [address], [address], [facility] 04/13/2019 10:08:06 OBGyn Episode No OBEpisode recorded.
[2025-04-27 09:32] VITALS: BMI 38.3
--- NOTE | 2025-04-28 09:46 | P.CONAN_ITS ---
HPI - Anesthesia Eval Consult details Narrative: 70yo F for Colonoscopy PMFSH Active Problems Active Problems: All Active Problems Acute bronchitis (Acute) Past Medical History Medical History (Updated 04/27/25 @ 09:32 by Fabi Agustin RN) Diverticulosis HTN (hypertension) Surgical History Surgical History (Updated 04/27/25 @ 09:32 by Fabi Agustin RN) Hx of varicose vein ligation History of back surgery H/O colonoscopy Social History Social History (Updated 04/27/25 @ 09:33 by Fabi Agustin RN) Household Members: Spouse Meds Allergies Allergy/AdvReac Type Severity Reaction Status Date / Time dog dander Allergy Unknown unknown Verified 07/12/22 13:27 house dust Allergy Unknown unknown Verified 07/12/22 13:27 Home Medications ?Medication ?Instructions ?Recorded ?Confirmed ?Last Taken ?Type fluticasone propionate 50 2 spray intranasal DAILY 02/2604/27/25 Unknown History mcg/actuation nasal spray,suspension lisinopril 20 1 tab PO DAILY 06/13/2104/09 Unknown History mg-hydrochlorothiazide 25 mg tablet Exam Height,Weight and Vital Signs: Height 5 ft 3 in Weight 98.157 kg Assessment and Plan Assessment Anesthesia Assessment: Chart Reviewed
--- NOTE | 2025-04-28 09:46 | HO.ANESPROP2 ---
HPI - Anesthesia Eval Consult details Narrative: 70yo F for Colonoscopy PMFSH Active Problems Active Problems: All Active Problems Acute bronchitis (Acute) Past Medical History Medical History Diverticulosis HTN (hypertension) Surgical History Surgical History Hx of varicose vein ligation History of back surgery H/O colonoscopy Social History Social History Household Members: Spouse Are you a primary hospice patient care secretary to a significant other at home: No Do you presently have visiting nurse or other home services: No Patient Tobacco Use Status: Never used Tobacco Meds Allergies Allergy/AdvReac Type Severity Reaction Status Date / Time dog dander Allergy Unknown unknown Verified 04/29/25 09:04 house dust Allergy Unknown unknown Verified 04/29/25 09:04 Home Medications ?Medication ?Instructions ?Recorded ?Confirmed ?Last Taken ?Type fluticasone propionate 50 2 spray intranasal DAILY 06/13/21 04/27/25 Unknown History mcg/actuation nasal spray,suspension lisinopril 20 1 tab PO DAILY 06/13/21 04/27/25 Unknown History mg-hydrochlorothiazide 25 mg tablet Exam Height,Weight and Vital Signs: Height 5 ft 3 in Weight 98.157 kg Assessment and Plan Assessment Anesthesia Assessment: Chart Reviewed
[2025-04-29 08:52] VITALS: BMI 38.1
[2025-04-29 08:55] VITALS: BP 136/66; PULSE 104; RESP 18; TEMP 36.7; O2SAT 96
--- NOTE | 2025-04-29 09:00 | P.CONAN_ITS ---
[facility] Active Problems Active Problems: All Active Problems Acute bronchitis (Acute) Past Medical History Medical History Diverticulosis HTN (hypertension) Functional capacity: independent ambulation Patient : No Family History Family history of problems with anesthesia: No Surgical History Surgical History Hx of varicose vein ligation History of back surgery H/O colonoscopy History of Problems with Anesthesia: No Social History Social History Household Members: Spouse Are you a primary career technology teacher to a significant other at home: No Do you presently have visiting nurse or other home services: No Patient Tobacco Use Status: Never used Tobacco Meds Allergies Allergy/AdvReac Type Severity Reaction Status Date / Time dog dander Allergy Unknown unknown Verified 04/29/25 09:04 house dust Allergy Unknown unknown Verified 04/29/25 09:04 Active Medications: Current Medications Lactated Ringer's (Lr) 1,000 mls @ 100 mls/hr IVCONT .Q10H ROCIO Home Medications ?Medication ?Instructions ?Recorded ?Confirmed ?Last Taken ?Type fluticasone propionate 50 2 spray intranasal DAILY 02/2604/27/25 Unknown History mcg/actuation nasal spray,suspension lisinopril 20 1 tab PO DAILY 06/13/2104/09 Unknown History mg-hydrochlorothiazide 25 mg tablet Exam Height,Weight and Vital Signs: Height 5 ft 3 in Weight 97.522 kg Airway Mallampati Class: III TM Dist: >3cm Neck ROM: Full Heart: RRR Lungs: CTA Assessment and Plan Assessment Anesthesia Assessment: Anesthesia Plan Discussed Final Anesthetic Review Family History of Problems with Anesthesia: No History of Problems with Anesthesia: No NPO: Yes ASA Class: II Final Preanesthetic Review: Meds/Allgs Chart Reviewed, Consent Obtained/Reviewed and Anes Risks/Benef Reviewed Patient Risk: Low Procedure Risk: Low Anesthetic Plan Anesthetic Plan: MAC: Disposition: Standard PACU
[2025-04-29] MEDS: Lactated Ringers 1,000 ML 100 ML IVCONT (09:02)
--- NOTE | 2025-04-29 09:14 | MHC.SHP ---
Pre-Procedural Eval Section A - 24 Hr Update-Section A only Date of Service: 04/29/25 The patient is an INPATIENT: No Changes since office visit: No Cold of Flu in the past 2 weeks, No New Medical Problems, No Changes in Medication and No Patient answered all questions The patient has been examined within 24 hours of the surgical procedure. The History & Physical has been completed within 30 days and I have reviewed it.: Yes Section B - Complete if H&P > 30 days Chief Complaint: DIVERTICULOSIS Allergies: Allergies Allergy/AdvReac Type Severity Reaction Status Date / Time dog dander Allergy Unknown unknown Verified 04/29/25 09:04 house dust Allergy Unknown unknown Verified 04/29/25 09:04 Plan I have reviewed the history and physical and performed a pertinent physical examination on my patient. No changes have occurred unless specified. Time Spent With Patient Time: Total time managing care of this patient today ____ minutes.
[2025-04-29 09:46] VITALS: BP 93/54; PULSE 97; RESP 16; TEMP 36.7; O2SAT 95
--- NOTE | 2025-04-29 09:48 | P.BOP_ITS ---
Brief Operative Note Date of Service: 04/29/25 Pre-op diagnosis: abnl ct Post-op diagnosis: same Procedure: colonoscopy Surgeon: Greg Gastelum MD Anesthesia: MAC Was an Oven Operator Automatic used for this Procedure?: No Estimated blood loss (mL): 2 Pathology: other Condition: stable Disposition: PACU
[2025-04-29 10:00] VITALS: BP 122/62; PULSE 70; RESP 16; O2SAT 98
[2025-04-29 10:15] VITALS: BP 143/80; PULSE 72; RESP 16; TEMP 36.2; O2SAT 98
--- NOTE | 2025-04-29 10:46 | OP_ITS ---
DATE OF SERVICE: 04/29/2025 SURGEON: Greg Gastelum MD INDICATIONS: Abnormal CT scan of the colon. PREOPERATIVE DIAGNOSIS: POSTOPERATIVE DIAGNOSIS: PROCEDURE PERFORMED: Colonoscopy to the terminal ileum with biopsy. ESTIMATED BLOOD LOSS: COMPLICATIONS: ANESTHESIA: Monitored anesthesia care. ASSISTANTS: SPECIMENS: DESCRIPTION OF PROCEDURE: A history and physical was performed. The risks and benefits of the procedure were explained to the patient. Informed consent was obtained. The patient was placed in the left lateral decubitus position. A digital rectal exam was performed and found to be normal. The Olympus pediatric video colonoscope was introduced into the rectum and advanced to the cecum. The cecum was identified by transillumination, palpation, and identification of ileocecal valve. Examination was performed. The scope was removed. She tolerated the procedure well and was taken to recovery area in stable condition. FINDINGS: The terminal ileum was examined and appeared normal. The visualized colonic mucosa was normal. The quality of the prep was good. There was no colitis. Random biopsies were obtained from the right colon and left colon, there was mild diverticulosis involving the sigmoid. IMPRESSION: Normal colonoscopy. RECOMMENDATION: 1. Followup the biopsy results. 2. Repeat colonoscopy is recommended in 10 years for average-risk individuals. MD MARELY Kendall/DEBL / [id number]
== END 2025-04-29 10:37 | disposition home or self-care (01) ==
PROVIDERS: PCP Physician Assistant; Visit Provider Internal Medicine Gastroenterology
PROC: 0DJD8ZZ Inspection of Lower Intestinal Tract, Via Natural or Artificial Opening Endoscopic (ICD-10-PCS; CPT 45378; principal; 2025-04-29 10:00)
DX: K52.832 Lymphocytic colitis (principal); K57.30 Diverticulosis of large intestine without perforation or abscess without bleeding; R19.7 Diarrhea, unspecified; I10 Essential (primary) hypertension; Z79.899 Other long term (current) drug therapy; Z98.890 Other specified postprocedural states
CPT/HCPCS: 45380; 88305; J2003; J2704

== ENCOUNTER 2025-05-26 10:45 | Outpatient (REF) | payer MEDICARE, SELFPAY ==
[2025-05-26 14:47] LABS: Leukocytes Stool Qualitative NEGATIVE (NEGATIVE)
[2025-05-27 07:15] LABS: E. coli EAEC Not Detected (Not Detect.); E. coli EPEC Not Detected (Not Detect.); E. coli ETEC Not Detected (Not Detect.); E. coli STEC Not Detected (Not Detect.)
[2025-05-27 07:16] LABS: Shigella sp./EIEC Not Detected (Not Detect.)
[2025-06-03 19:44] LABS: Calprotectin, Fecal 16 mcg/g
== END 2025-05-26 10:46 | disposition home or self-care (01) ==
LOC: HO.HMGCLNP 10:45
PROVIDERS: PCP Physician Assistant; Visit Provider Internal Medicine Gastroenterology
DX: R93.3 Abnormal findings on diagnostic imaging of other parts of digestive tract (principal); K57.90 Diverticulosis of intestine, part unspecified, without perforation or abscess without bleeding; R19.7 Diarrhea, unspecified
CPT/HCPCS: 83993; 87177; 87209; 87507; 89055